=== PATIENT | female | born 1950 ===

== ENCOUNTER 2024-10-30 11:01 | Inpatient (IN) | payer OTHER ==
[2024-10-30 13:19] LABS: ABSOLUTE IMMATURE GRANULOCYTES 0.21 x10^3/uL (0.0-0.031); BASOPHILS # 0.07 x10^3/uL (0.01-0.08); EOSINOPHIL % 0.4 % (0.7-5.8); EOSINOPHILS # 0.08 x10^3/uL (0.04-0.36); MCHC 30.7 g/dl (32.2-35.5); MEAN CELL VOLUME 89.5 fl (79.4-94.8); MEAN PLT VOLUME 8.0 fl (9.4-12.3); MONOCYTE # 1.09 x10^3/uL (0.24-0.86); MONOCYTE % 5.6 % (4.7-12.5); RDW 14.2 % (12.4-16.6)
[2024-10-30 13:24] LABS: BG HCT 39.0 % (32.4-45.2); VENOUS BASE EXCESS 1.1 mmol/L (-2-2); VENOUS O2 SATURATION 41.4 % (70-80); VENOUS PCO2 42.3 mmHg (38-52); VENOUS PH 7.406 (7.310-7.410)
[2024-10-30] MEDS ORDERED: ACETAMINOPHEN INJECTION 100 ML ONE ×2 (13:25→14:31)
[2024-10-30 13:27] LABS: INR 1.23 (0.83-1.09); PROTHROMBIN TIME (PATIENT) 13.5 SEC (9.7-13.0)
[2024-10-30 13:29] LABS: ACTIVATED PTT 31.3 SECONDS (25.2-36.5)
[2024-10-30] MEDS: SODIUM CHLORIDE 0.9% 1000 ML INFUS.BAG IV STA (13:29)
[2024-10-30] MEDS: ACETAMINOPHEN 1000 MG/100 ML BAG IVPB ONE (13:30)
[2024-10-30 13:43] LABS: CO2 28.0 mmol/L (21-32); GLUCOSE,RANDOM 167.0 mg/dL (74-106)
[2024-10-30 13:46] LABS: CREATININE 1.3 mg/dL (0.55-1.3); SGOT/AST 25.0 U/L (15-37); SGPT/ALT 25.0 U/L (13-61)
[2024-10-30 13:48] LABS: ALK PHOS 93.0 U/L (45-117); TOT PROT 7.3 g/dl (6.4-8.2)
[2024-10-30 14:23] LABS: LACTIC ACID 2.4 mmol/L (0.4-2.0)
[2024-10-30] MEDS: PIPERACILLIN/TAZOB 3.375 GM 3.375 GM in DEXTROSE 5%-WATER - 50 ML IVPB ONE (15:33)
[2024-10-30] MEDS: SODIUM CHLORIDE 0.9% 500 ML INFUS.BAG IV ONE (15:34)
[2024-10-30] MEDS ORDERED: PIPERACILLIN/TAZOB 3.375 GM 3.375 GM/50 ML BAG IVPB ONE (15:35)
[2024-10-30 15:38] LABS: EPI CELLS 3 /uL (0-25.1); HYALINE CASTS 4 /uL (0-3.1); URINE APPEARANCE CLEAR; URINE BILIRUBIN 1+ (NEGATIVE); URINE COLOR DK YELLOW; URINE GLUCOSE (UA) NEGATIVE (NEGATIVE); URINE KETONE TRACE (NEGATIVE); URINE LEUK ESTERASE 1+ (NEGATIVE); URINE NITRITE POSITIVE (NEGATIVE); URINE PROTEIN 1+ (NEGATIVE); URINE RBC 34 /uL (0-23.9); URINE UROBILINOGEN 1.0 mg/dL (0.2-1.0); URINE WBC 460 /uL (0-25.8)
[2024-10-30 15:41] LABS: URINE BACTERIA 195.7 /uL (0-1359)
[2024-10-30] MEDS ORDERED: VANCOMYCIN 1 GM PREMIX (F) 1 GM/200 ML BAG ONE (16:07)
[2024-10-30] MEDS: VANCOMYCIN/WATER FOR INJ (PEG) 1,000 MG/200 ML BAG IVPB ONE (16:24)
[2024-10-30] MEDS: PIPERACILLIN/TAZOB 4.5 GM 4.5 GM in DEXTROSE 5%-WATER 100 ML IVPB ONE (19:49)
[2024-10-30] MEDS: FAMOTIDINE 20 MG TABLET PO SCH (21:29)
[2024-10-30] MEDS: GABAPENTIN 100 MG CAPSULE PO SCH (21:29)
[2024-10-31 09:33] LABS: ABSOLUTE IMMATURE GRANULOCYTES 0.18 x10^3/uL (0.0-0.031); BASOPHILS # 0.06 x10^3/uL (0.01-0.08); EOSINOPHIL % 1.0 % (0.7-5.8); EOSINOPHILS # 0.13 x10^3/uL (0.04-0.36); MCHC 31.8 g/dl (32.2-35.5); MEAN CELL VOLUME 88.5 fl (79.4-94.8); MEAN PLT VOLUME 8.4 fl (9.4-12.3); MONOCYTE # 1.03 x10^3/uL (0.24-0.86); MONOCYTE % 8.1 % (4.7-12.5); RDW 14.1 % (12.4-16.6)
[2024-10-31] MEDS: CYANOCOBALAMIN 1,000 MCG TABLET (FP) PO SCH (10:05)
[2024-10-31] MEDS: LOSARTAN POTASSIUM 50 MG TABLET PO SCH (10:05)
[2024-10-31] MEDS: CEFTRIAXONE 1 GM in DEXTROSE 5%-WATER - 50 ML IVPB SCH (10:05)
[2024-10-31] MEDS: THIAMINE 100 MG TABLET PO SCH (10:06)
[2024-10-31] MEDS: FOLIC ACID 1 MG TABLET (FP) PO SCH (10:06)
[2024-10-31] MEDS: CHOLECALCIFEROL (VIT D3) 1,000 UNIT (25 MCG) TABLET PO SCH (10:06)
[2024-10-31] MEDS: ESCITALOPRAM OXALATE 10 MG TABLET PO SCH (10:06)
[2024-10-31 10:20] LABS: CO2 27.0 mmol/L (21-32); GLUCOSE,RANDOM 103.0 mg/dL (74-106)
[2024-10-31 10:23] LABS: CREATININE 0.8 mg/dL (0.55-1.3); SGOT/AST 23.0 U/L (15-37); SGPT/ALT 21.0 U/L (13-61)
[2024-10-31 10:24] LABS: TOT PROT 6.4 g/dl (6.4-8.2)
[2024-10-31 10:26] LABS: ALK PHOS 67.0 U/L (45-117)
[2024-10-31 14:24] VITALS: BMI 21.1
[2024-11-01 07:58] LABS: ABSOLUTE IMMATURE GRANULOCYTES 0.21 x10^3/uL (0.0-0.031); BASOPHILS # 0.06 x10^3/uL (0.01-0.08); EOSINOPHIL % 1.0 % (0.7-5.8); EOSINOPHILS # 0.12 x10^3/uL (0.04-0.36); MCHC 31.1 g/dl (32.2-35.5); MEAN CELL VOLUME 87.4 fl (79.4-94.8); MEAN PLT VOLUME 8.1 fl (9.4-12.3); MONOCYTE # 1.34 x10^3/uL (0.24-0.86); MONOCYTE % 10.8 % (4.7-12.5); RDW 14.0 % (12.4-16.6)
[2024-11-01 08:29] LABS: CO2 26.0 mmol/L (21-32); GLUCOSE,RANDOM 112.0 mg/dL (74-106)
[2024-11-01 08:32] LABS: CREATININE 0.8 mg/dL (0.55-1.3); SGOT/AST 19.0 U/L (15-37); SGPT/ALT 20.0 U/L (13-61)
[2024-11-01 08:34] LABS: TOT PROT 6.6 g/dl (6.4-8.2)
[2024-11-01 08:35] LABS: ALK PHOS 69.0 U/L (45-117)
[2024-11-02 08:48] LABS: ABSOLUTE IMMATURE GRANULOCYTES 0.20 x10^3/uL (0.0-0.031); BASOPHILS # 0.06 x10^3/uL (0.01-0.08); EOSINOPHIL % 0.8 % (0.7-5.8); EOSINOPHILS # 0.09 x10^3/uL (0.04-0.36); MCHC 31.6 g/dl (32.2-35.5); MEAN CELL VOLUME 88.3 fl (79.4-94.8); MEAN PLT VOLUME 8.0 fl (9.4-12.3); MONOCYTE # 1.05 x10^3/uL (0.24-0.86); MONOCYTE % 9.5 % (4.7-12.5); RDW 14.4 % (12.4-16.6)
[2024-11-02 09:26] LABS: CO2 27.0 mmol/L (21-32)
[2024-11-02 09:27] LABS: GLUCOSE,RANDOM 125.0 mg/dL (74-106)
[2024-11-02 09:30] LABS: CREATININE 0.8 mg/dL (0.55-1.3); SGOT/AST 19.0 U/L (15-37); SGPT/ALT 20.0 U/L (13-61); TOT PROT 6.8 g/dl (6.4-8.2)
[2024-11-02 09:31] LABS: ALK PHOS 64.0 U/L (45-117)
[2024-11-03 09:07] LABS: ABSOLUTE IMMATURE GRANULOCYTES 0.24 x10^3/uL (0.0-0.031); BASOPHILS # 0.04 x10^3/uL (0.01-0.08); EOSINOPHIL % 0.6 % (0.7-5.8); EOSINOPHILS # 0.07 x10^3/uL (0.04-0.36); MCHC 30.8 g/dl (32.2-35.5); MEAN CELL VOLUME 88.3 fl (79.4-94.8); MEAN PLT VOLUME 8.1 fl (9.4-12.3); MONOCYTE # 1.29 x10^3/uL (0.24-0.86); MONOCYTE % 10.3 % (4.7-12.5); RDW 14.4 % (12.4-16.6)
[2024-11-03 10:13] LABS: TOT PROT 6.9 g/dl (6.4-8.2)
[2024-11-03 10:18] LABS: CO2 26.0 mmol/L (21-32)
[2024-11-03 10:19] LABS: GLUCOSE,RANDOM 124.0 mg/dL (74-106)
[2024-11-03 10:20] LABS: SGOT/AST 22.0 U/L (15-37); SGPT/ALT 21.0 U/L (13-61)
[2024-11-03 10:21] LABS: CREATININE 0.8 mg/dL (0.55-1.3)
[2024-11-03 10:23] LABS: ALK PHOS 65.0 U/L (45-117)
[2024-11-03] MEDS: PIPERACILLIN/TAZOB 3.375 GM 3.375 GM in DEXTROSE 5%-WATER - 50 ML IVPB SCH (15:44)
[2024-11-04 09:26] LABS: ABSOLUTE IMMATURE GRANULOCYTES 0.17 x10^3/uL (0.0-0.031); BASOPHILS # 0.06 x10^3/uL (0.01-0.08); EOSINOPHIL % 1.0 % (0.7-5.8); EOSINOPHILS # 0.10 x10^3/uL (0.04-0.36); MCHC 31.2 g/dl (32.2-35.5); MEAN CELL VOLUME 88.4 fl (79.4-94.8); MEAN PLT VOLUME 8.1 fl (9.4-12.3); MONOCYTE # 0.94 x10^3/uL (0.24-0.86); MONOCYTE % 9.2 % (4.7-12.5); RDW 14.6 % (12.4-16.6)
[2024-11-04 10:00] LABS: CO2 28.0 mmol/L (21-32); GLUCOSE,RANDOM 117.0 mg/dL (74-106)
[2024-11-04 10:03] LABS: CREATININE 1.0 mg/dL (0.55-1.3); SGOT/AST 27.0 U/L (15-37); SGPT/ALT 28.0 U/L (13-61)
[2024-11-04 10:05] LABS: TOT PROT 6.6 g/dl (6.4-8.2)
[2024-11-04 10:06] LABS: ALK PHOS 59.0 U/L (45-117)
[2024-11-05 09:12] LABS: ABSOLUTE IMMATURE GRANULOCYTES 0.14 x10^3/uL (0.0-0.031); BASOPHILS # 0.04 x10^3/uL (0.01-0.08); EOSINOPHIL % 0.5 % (0.7-5.8); EOSINOPHILS # 0.06 x10^3/uL (0.04-0.36); MCHC 31.7 g/dl (32.2-35.5); MEAN CELL VOLUME 87.8 fl (79.4-94.8); MEAN PLT VOLUME 8.1 fl (9.4-12.3); MONOCYTE # 1.08 x10^3/uL (0.24-0.86); MONOCYTE % 8.2 % (4.7-12.5); RDW 14.5 % (12.4-16.6)
[2024-11-05 10:51] LABS: CO2 28.0 mmol/L (21-32)
[2024-11-05 10:52] LABS: GLUCOSE,RANDOM 126.0 mg/dL (74-106)
[2024-11-05 10:54] LABS: SGOT/AST 29.0 U/L (15-37); SGPT/ALT 37.0 U/L (13-61)
[2024-11-05 10:55] LABS: CREATININE 0.9 mg/dL (0.55-1.3)
[2024-11-05 10:56] LABS: TOT PROT 6.7 g/dl (6.4-8.2)
[2024-11-05 10:57] LABS: ALK PHOS 58.0 U/L (45-117)
[2024-11-06 07:59] LABS: ABSOLUTE IMMATURE GRANULOCYTES 0.14 x10^3/uL (0.0-0.031); BASOPHILS # 0.04 x10^3/uL (0.01-0.08); EOSINOPHIL % 0.3 % (0.7-5.8); EOSINOPHILS # 0.04 x10^3/uL (0.04-0.36); MCHC 31.3 g/dl (32.2-35.5); MEAN CELL VOLUME 88.5 fl (79.4-94.8); MEAN PLT VOLUME 8.2 fl (9.4-12.3); MONOCYTE # 1.02 x10^3/uL (0.24-0.86); MONOCYTE % 7.3 % (4.7-12.5); RDW 14.5 % (12.4-16.6)
[2024-11-06 09:33] LABS: GLUCOSE,RANDOM 132.0 mg/dL (74-106); SGPT/ALT 39.0 U/L (13-61)
[2024-11-06 09:34] LABS: CO2 27.0 mmol/L (21-32)
[2024-11-06 09:35] LABS: TOT PROT 6.8 g/dl (6.4-8.2)
[2024-11-06 09:36] LABS: ALK PHOS 57.0 U/L (45-117); CREATININE 0.9 mg/dL (0.55-1.3); SGOT/AST 35.0 U/L (15-37)
[2024-11-06 15:15] VITALS: RESP 18
[2024-11-07 07:35] VITALS: TEMP 98.1
[2024-11-07 08:32] LABS: ABSOLUTE IMMATURE GRANULOCYTES 0.11 x10^3/uL (0.0-0.031); BASOPHILS # 0.05 x10^3/uL (0.01-0.08); EOSINOPHIL % 0.9 % (0.7-5.8); EOSINOPHILS # 0.11 x10^3/uL (0.04-0.36); MCHC 31.0 g/dl (32.2-35.5); MEAN CELL VOLUME 89.0 fl (79.4-94.8); MEAN PLT VOLUME 8.3 fl (9.4-12.3); MONOCYTE # 0.79 x10^3/uL (0.24-0.86); MONOCYTE % 6.6 % (4.7-12.5); RDW 14.6 % (12.4-16.6)
[2024-11-07 14:51] VITALS: BP 118/68; PULSE 99
== END 2024-11-07 17:10 | DRG 689 ==
LOC: JER 11:01 → JERBED 13:22 → J7W 16:45
PROVIDERS: ADMIT Internal Medicine; ATTEND Internal Medicine
DX: N39.0 Urinary tract infection, site not specified (principal); G93.41 Metabolic encephalopathy; R53.2 Functional quadriplegia; F03.90 Unspecified dementia, unspecified severity, without behavioral disturbance, psychotic disturbance, mood disturbance, and anxiety; I10 Essential (primary) hypertension; B96.1 Klebsiella pneumoniae [K. pneumoniae] as the cause of diseases classified elsewhere; B95.2 Enterococcus as the cause of diseases classified elsewhere; K21.9 Gastro-esophageal reflux disease without esophagitis; J45.909 Unspecified asthma, uncomplicated; R41.82 Altered mental status, unspecified; E86.0 Dehydration
CPT/HCPCS: 36415; 70450-TC; 71045-TC-FY; 80048; 80053; 81003; 82803; 83605; 84484; 85025; 85610; 85730; 86850; 86900; 86901; 87040; 87086; 87637-QW; 93005; 93010; 99291